=== PATIENT | female | born 1955 | race Hispanic/Latino ===

== ENCOUNTER 2017-02-02 14:59 | Emergency (ER) | payer BC, MEDICAID ==
[~2017-02-02] VITALS: Ht 160 cm; Wt 56.7 kg
[~2017-02-02 14:59] MED LIST: ACETAMINOPHEN500 M3 ORAL; ADALAT10 MG ORAL; LIPITOR40 MG ORAL; LOSARTAN POTASS50 MG ORAL
[2017-02-02 15:03] VITALS: BP 201/74
[2017-02-02] MEDS ORDERED: BENAZEPRIL HCL40 MG ORAL (15:09)
--- NOTE | 2017-02-02 15:12 | Emergency Room Report ---
History of Present Illness General Chief Complaint: Headache Source: Patient, Medical Record Present Illness HPI Patient is a 61-year-old female who presented after increased headache. Patient gradual onset of symptoms. Patient says she's not been able to fill her blood pressure medication over the past few days. Patient denied any vomiting. She denied recent trauma. She cannot really the name of her medications. Patient states she took her JEANA inhibitor without any improvement in her blood pressure. Patient denied any neck pain or stiffness. She denied weakness to her extremities. Allergies: Coded Allergies: No Known Allergies (Unverified , 07/21/16) Patient History Last Menstrual Period: na Reviewed Nursing Documentation: PMH: Agreed, PSxH: Agreed Nursing Documentation-PMH Past Medical History: No History, Except For Hx Hypertension: Yes Hx Diabetes: Yes Review of Systems All Other Systems: negative except mentioned in HPI Physical Exam Vital Signs Date Time Temp Pulse Resp B/P Pulse Ox O2 Delivery O2 Flow Rate FiO2 02/02/17 14:55 97.7 73 18 201/74 98 Room Air General Appearance: well appearing, no apparent distress, alert, GCS 15 Head: normocephalic, atraumatic ENT: hearing grossly normal, normal voice Neck: full range of motion, supple Respiratory: no respiratory distress, speaking full sentences Cardiovascular #1: normal inspection, regular rate, rhythm Gastrointestinal: normal inspection, normal bowel sounds, non tender Musculoskeletal: normal inspection, back normal, no calf tenderness Neurologic: normal inspection, alert, oriented x3, normal gait Psychiatric: mood/affect normal Skin: no rash Medical Decision Making Diagnostic Impression: Primary Impression: Hypertension Additional Impression: End stage renal disease on dialysis ER Course Patient presented for headache.Differential diagnoses included but was not limited to skull fracture, subarachnoid hemorrhage, meningitis, aneurysm, mass lesion, intracranial hemorrhage.Laboratory testing showed evidence of chronic renal failure. The patient's potassium is unremarkable. Patient was normally dialyzed [facility]. The patient was noted to improvement in her headache after clonidine. The patient is advised to follow up with primary care doctor in 1- 2 days. Patient is advised to return if any worsening condition or if any changes in status that are concerning. Labs Test 02/02/17 15:20 White Blood Count 4.4 K/UL (4.8-10.8) Red Blood Count 4.25 M/UL (4.20-5.40) Hemoglobin 12.2 G/DL (12.0-16.0) Hematocrit 39.2 % (37.0-47.0) Mean Corpuscular Volume 92 FL (80-99) Mean Corpuscular Hemoglobin 28.8 PG (27.0-31.0) Mean Corpuscular Hemoglobin Concent 31.2 G/DL (32.0-36.0) Red Cell Distribution Width 15.2 % (11.6-14.8) Platelet Count 201 K/UL (150-450) Mean Platelet Volume 6.0 FL (6.5-10.1) Neutrophils (%) (Auto) 71.0 % (45.0-75.0) Lymphocytes (%) (Auto) 16.9 % (20.0-45.0) Monocytes (%) (Auto) 9.9 % (1.0-10.0) Eosinophils (%) (Auto) 0.9 % (0.0-3.0) Basophils (%) (Auto) 1.4 % (0.0-2.0) Sodium Level 134 mEQ/L (135-145) Potassium Level 4.2 mEQ/L (3.4-4.9) Chloride Level 89 mEQ/L (98-107) Carbon Dioxide Level 29 mEQ/L (20-30) Anion Gap 16 (5-15) Blood Urea Nitrogen 35 mg/dL (7-23) Creatinine 5.4 mg/dL (0.5-0.9) Estimat Glomerular Filtration Rate 8.1 mL/min (>60) Glucose Level 125 mg/dL (74-106) Calcium Level 9.8 mg/dL (8.6-10.2) Total Bilirubin 0.3 mg/dL (0.0-1.2) Aspartate Amino Transf (AST/SGOT) 33 U/L (5-40) Alanine Aminotransferase (ALT/SGPT) 21 U/L (3-33) Alkaline Phosphatase 314 U/L (35-104) Total Protein 8.9 g/dL (6.6-8.7) Albumin 4.3 g/dL (3.5-5.2) Globulin 4.6 g/dL Albumin/Globulin Ratio 0.9 (1.0-2.7) EKG Diagnostic Results Rate: normal Rhythm: NSR ST Segments: no acute changes Last Vital Signs Date Time Temp Pulse Resp B/P Pulse Ox O2 Delivery O2 Flow Rate FiO2 02/02/17 15:03 97.7 73 18 201/74 98 Room Air Status: improved Disposition: HOME, SELF-CARE Condition: Stable Scripts Amlodipine Besylate (Norvasc) 10 Mg Tablet 10 MG ORAL DAILY, #30 TAB Prov: Mathew Knight 02/02/17 Mathew Knight Feb 02, 2017 15:12
[2017-02-02 15:47] LABS: BASOPHILS % (AUTO) 1.4 % (0.0-2.0); EOSINOPHILS % (AUTO) 0.9 % (0.0-3.0); LYMPHOCYTES % (AUTO) 16.9 % (20.0-45.0); MEAN CORPUSCULAR HEMOGLOBIN 28.8 PG (27.0-31.0); MEAN CORPUSCULAR HGB CONC 31.2 G/DL (32.0-36.0); MEAN CORPUSCULAR VOLUME 92 FL (80-99); MONOCYTES % (AUTO) 9.9 % (1.0-10.0); PLATELET COUNT 201 K/UL (150-450); RED BLOOD COUNT 4.25 M/UL (4.20-5.40); RED CELL DISTRIBUTION WIDTH 15.2 % (11.6-14.8); WHITE BLOOD COUNT 4.4 K/UL (4.8-10.8)
[2017-02-02 16:03] LABS: ALBUMIN/GLOBULIN RATIO 0.9 (1.0-2.7); CALCIUM 9.8 mg/dL (8.6-10.2); CREATININE 5.4 mg/dL (0.5-0.9); GLOMERULAR FILTRATION RATE 8.1 mL/min (>60); POTASSIUM 4.2 mEQ/L (3.4-4.9); TOTAL PROTEIN 8.9 g/dL (6.6-8.7)
--- NOTE | 2017-02-02 16:34 | Diagnostic Imaging Report ---
Indication: PAIN Technique: Continuous helical CT scanning of the head was performed without intravenous contrast material. Axial and coronal 5 mm sections were generated. Radiation dose was minimized using automated exposure control Dose: Total Dose Length Product - DLP [address] Dose Index - CTDIvol(s) 70.38 mGy. Comparison: None Findings: The ventricular system is normal in size and configuration. There is no shift of midline structures. No abnormal extra-axial fluid collections are noted. There is no evidence of intracerebral bleeding. No other abnormal high or low density areas are noted within the brain. Impression: Normal CT scan of the head without contrast material. The CT scanner at [facility] is accredited by the [employer] and the scans are performed using protocols designed to limit radiation exposure to as low as reasonably achievable to attain images of sufficient resolution adequate for diagnostic evaluation.
[2017-02-02] MEDS ORDERED: NORVASC10 MG ORAL (16:42)
[2017-02-02] MEDS ORDERED: Acetaminophen 500mg (ES) tab ORAL ONE (16:45)
[2017-02-02 16:52] VITALS: BP 178/84
[2017-02-02 17:23] VITALS: BP 154/50
[2017-02-02 17:24] VITALS: BP 178/84
--- NOTE | 2017-02-07 18:27 | Cardiology Report ---
APPROVED REPORT EKG Measurement Heart [id number] PA [id number] Normal sinus rhythm Right bundle branch block Abnormal ECG
== END 2017-02-02 17:27 | disposition home or self-care (01) ==
LOC: EDBD 14:59 → EMR 15:19
DX: I12.0 Hypertensive chronic kidney disease with stage 5 chronic kidney disease or end stage renal disease (principal); E11.22 Type 2 diabetes mellitus with diabetic chronic kidney disease; N18.6 End stage renal disease; Z99.2 Dependence on renal dialysis
CPT/HCPCS: 36415; 70450; 80053; 85025; 93005; 96374; 99284; J0360